=== PATIENT | male | born 1970 | race Two or more races ===

== ENCOUNTER 2018-03-27 23:55 | Emergency (ER) | payer OTHER, BC ==
[~2018-03-27] VITALS: Ht 167.6 cm; Wt 86.2 kg
[~2018-03-27 23:55] MED LIST: FLUO10CA13 PO; METF10002 PO
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
[2018-03-28] MEDS ORDERED: OXYC-323 PO (00:24)
[2018-03-28] MEDS ORDERED: MORPHINE SULFATE 10 MG/ML SYRINGE. SQ ONE (01:00)
[2018-03-28] MEDS ORDERED: ACETAMINOPHEN 500 MG TABLET PO ONE (01:00)
[2018-03-28] MEDS ORDERED: TRAM50TA PO (01:59)
[2018-03-28 02:00] VITALS: BP 140/95
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
== END 2018-03-28 02:00 | disposition home or self-care (01) ==
LOC: ER 23:55
DX: S70.12XA Contusion of left thigh, initial encounter (principal); Z88.6 Allergy status to analgesic agent; Z88.8 Allergy status to other drugs, medicaments and biological substances; Y04.2XXA Assault by strike against or bumped into by another person, initial encounter; Y93.89 Activity, other specified; Y99.8 Other external cause status; Y92.89 Other specified places as the place of occurrence of the external cause
CPT/HCPCS: 73552; 82947; 96372; 99285; J2270

== ENCOUNTER 2021-12-21 21:15 | Emergency (ER) | payer OTHER, BC ==
[~2021-12-21] VITALS: Ht 167.6 cm; Wt 90.0 kg
[~2021-12-21 21:15] MED LIST changes: -METF10002 PO; +METF10007 PO; +OXYC1TAB15 PO; +TRAM50TA PO
[2021-12-21 22:30] VITALS: BP 151/80
[2021-12-21 23:17] LABS: BARBITURATES NEG (NEG); BENZODIAZEPINES NEG (NEG); CANNABINOIDS NEG (NEG); COCAINE NEG (NEG); METHADONE NEG (NEG); OPIATES NEG (NEG); PHENCYCLIDINE NEG (NEG)
[2021-12-21 23:18] LABS: AMPHETAMINE/METHAMPHETAMINE NEG (NEG)
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
== END 2021-12-21 23:31 | disposition home or self-care (01) ==
LOC: ER 21:15
DX: Z77.098 Contact with and (suspected) exposure to other hazardous, chiefly nonmedicinal, chemicals (principal); R51.9 Headache, unspecified; I10 Essential (primary) hypertension; E11.9 Type 2 diabetes mellitus without complications; Z88.8 Allergy status to other drugs, medicaments and biological substances; Z88.6 Allergy status to analgesic agent
CPT/HCPCS: 36415; 80307; 99283; 99284